=== PATIENT | female | born 1960 | race Caucasian/White ===

== ENCOUNTER 2020-05-23 10:30 | Inpatient (IN) | payer MEDICAID, MEDICARE ==
[2020-05-23] MEDS ORDERED: IBUPROFEN 200 MG TAB GT ONE (10:42)
[2020-05-23] MEDS ORDERED: IPRATROPIUM/ALBUTEROL 3 ML VIAL NEB ONE (10:47)
[2020-05-23] MEDS ORDERED: methylPREDNISolone SODIUM SUC 40 MG/ML VIAL IV ONE (10:48)
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
--- NOTE | 2020-05-23 11:42 | RAD ---
TECHNIQUE: Abdomen Series Abdominal series complete, including supine and upright AP views of the abdomen and frontal chest. HISTORY: MAIN fever, ams COMPARISONS: None currently available. FINDINGS: Scattered opacities are present within both lungs. No pneumothorax. No significant effusion. Mild cardiomegaly. Elevated right hemidiaphragm. Bowel gas appearance is nonspecific and non-distended. There is no pneumoperitoneum. There is no air fluid level. There is no obstructive pattern. [id number] stool. No suspicious calcifications overlying the renal shadows. Pelvic phleboliths. Degenerative changes are present in the spine and hips. Fracture deformity of the right pubic symphysis and inferior pubic ramus. Sacroiliac fusion with screw. IMPRESSION: * Nonspecific nonobstructive bowel gas pattern. * Suspect bilateral pneumonia. Differential diagnosis includes congestion and pneumonitis. Electronically signed by: Efrain Merchant 05/23/2020 11:41 AM [facility]
[2020-05-23] MEDS ORDERED: cefTRIAXone SODIUM 1 GM in SODIUM CHL 0.9% 50ML MIN-BAG+ 50 ML IVPB ONE (12:18)
[2020-05-23] MEDS ORDERED: AZITHROMYCIN IV 500 MG in SODIUM CHLORIDE 0.9% 250ML 250 ML IVPB ONE (12:19)
--- NOTE | 2020-05-23 13:58 | ED.PDOC ---
History of Present Illness - General Chief Complaint: Fever Stated Complaint: fever, Time Seen by Provider: 05/23/20 10:30 Source: EMS notes reviewed, EMS, senior living records Exam Limitations: clinical condition - History of Present Illness Initial Comments: The patient is a 60-year-old female presenting from the senior living by EMS secondary to altered mental state and fever above 103 this morning. The patient did get a coronavirus vaccine shot yesterday. The patient is obviously febrile she is obviously tachypneic. She is obviously tachycardic. The patient received a dose of IV Benadryl with EMS. Upon arrival the patient is largely obtunded. She does move all extremities. She can be woken up with yelling at her. She does seem significantly confused but very drowsy. No evidence of pain with moving her head or neck. No evidence of pain to palpation of the abdomen or chest. The patient has a cast to the right lower leg. The patient has a healed tracheostomy site. The patient has a G-tube in place. We are being told by be senior living that the patient can take oral intake. The patient was apparently put on clindamycin 3 days ago for some concern over the right lower leg surgery site. The patient does not seem to be having any pain in the area. The patient does desaturate down to around 86% on room air when allowed to rest. She does have some mild coarse breath sounds primarily to the left lower lobe. She does have coarse breathing likely related to the previous tracheostomy. Timing/Duration: unsure - Possibly as long as 7 or 8 hours Severity: severe Allergies/Adverse Reactions: Allergies Ertapenem Allergy (Verified 05/23/20 10:42) Penicillins Allergy (Verified 05/23/20 10:42) Review of Systems - Review of Systems Review of Systems: 05/23/20 13:58 Patient is unable to give a review of systems secondary to lethargy Past Medical History (General) - Patient Medical History Hx Seizures: Yes Hx Stroke: No Hx Cardiac Disorders: No Hx Congestive Heart Failure: No Hx Pacemaker: No Hx Diabetes: Yes Surgical History: other - Social History Hx Depression: Yes - bipolar Family Medical History - Family History Mother Family History: No Known Physical Exam - Physical Exam General Appearance: Frail, Lethargic, Ill Appearing Eye Exam: bilateral normal Ears, Nose, Throat: hearing grossly normal, other - Dry oropharynx. I do not see any evidence of any blistering or oral lesions aside from poor dentition. Neck: non-tender, supple Respiratory: rales, rhonchi, other - Mild tachypnea. Cardiovascular/Chest: no edema, tachycardia Peripheral Pulses: radial,right: 2+, radial,left: 2+ Gastrointestinal/Abdominal: non tender - G-tube is in place, soft Rectal Exam: deferred Extremity: non-tender, no pedal edema, no calf tenderness, normal capillary re fill, other - Cast was cut off to allow for examination of the right lower extremity. Several scabs are in place but no obvious evidence of tenderness to palpation or obvious infection. Limb was splinted back in place. Neurologic: disoriented x 3 - The patient is obviously significantly more lethargic than normal. I am however uncertain what her baseline mental function is is. Skin Exam: other - The patient does have a very fine nonpalpable petechial rash over her torso and extremities. I am uncertain how long this has been present Comments: Vital Signs - 24 hr 05/23/20 10:25 Temperature 98.9 F Pulse Rate [ 121 H right brachial] Respiratory 24 Rate Blood Pressure 151/84 [right brachial ] O2 Sat by Pulse 87 L Oximetry Progress - Progress Progress: 05/23/20 14:02 The patient is a 60-year-old female presenting with significantly altered mental state and markedly elevated fever. She has responded well to Motrin as far as the fever. The Benadryl which she received has worn off and the patient seems to be mentating more clearly at this time. She is still somewhat confused. I am uncertain what her mental baseline is. She does have at least a left lower lobe pneumonia. She has been placed on Rocephin and azithromycin. Cultures are being done. She did receive a dose of Benadryl with EMS and a dose of Solu-Medrol here upon arrival with me. It is uncertain how much the coronavirus vaccine that she was given yesterday has affected her presentation here today. Admitting for continued care. The right lower extremity cast was taken down and resplinted. I do not see any obvious evidence of infection on clinical evaluation of the site today. clyde gordillo [phone] - Results/Orders Results/Orders: EKG shows sinus tachycardia with PACs. Left bundle branch block. Difficult to interpret otherwise. Rate is 117 bpm. No previous for comparison. Chest x-ray shows bilateral lower lung field infiltrates, left more so than right. See report for details. Rapid flu and coronavirus are negative. Laboratory Results - last 24 hr 05/23/20 05/23/20 05/23/20 11:13 11:13 11:13 WBC 4.4 L RBC 4.23 Hgb 13.0 Hct 39.0 MCV 92.0 MCH 30.7 MCHC 33.3 RDW 15.3 H Plt Count 126 L MPV 7.6 Absolute Neuts (auto) 3.90 Absolute Lymphs (auto) 0.10 L Absolute Monos (auto) 0.40 Absolute Eos (auto) 0.00 Absolute Basos (auto) 0.00 Neutrophils % 87.0 H Lymphocytes % 2.6 L Monocytes % 10.0 H Eosinophils % 0.1 L Basophils % 0.3 ESR 9 PT INR PTT (SP) Sodium Potassium Chloride Carbon Dioxide Anion Gap BUN Creatinine BUN/Creatinine Ratio Random Glucose Serum Osmolality Lactic Acid Calcium Magnesium Total Bilirubin AST ALT Alkaline Phosphatase Creatine Kinase 114 CK-MB (CK-2) 1.2 CK-MB (CK-2) % Not Reportable Troponin I 0.03 C-Reactive Protein B-Natriuretic Peptide 41.8 Serum Total Protein Albumin Globulin Albumin/Globulin Ratio Amylase 23 L Lipase TSH Urine Color Urine Appearance Urine pH Ur Specific [place] Urine Protein Urine Glucose (UA) Urine Ketones Urine Blood Urine Nitrite Urine Bilirubin Urine Urobilinogen Ur Leukocyte Esterase Urine RBC Urine WBC Ur Epithelial Cells Urine Bacteria 05/23/20 05/23/20 05/23/20 11:13 11:13 11:13 WBC RBC Hgb Hct MCV MCH MCHC RDW Plt Count MPV Absolute Neuts (auto) Absolute Lymphs (auto) Absolute Monos (auto) Absolute Eos (auto) Absolute Basos (auto) Neutrophils % Lymphocytes % Monocytes % Eosinophils % Basophils % ESR PT 12.1 H INR 1.22 H PTT (SP) 28.3 Sodium 138 Potassium 3.9 Chloride 103 Carbon Dioxide 22 Anion Gap 16.9 BUN 14 Creatinine 0.60 BUN/Creatinine Ratio 23.3 H Random Glucose 133 H Serum Osmolality 278.1 Lactic Acid 2.0 Calcium 8.8 Magnesium 1.4 L Total Bilirubin 1.0 AST 32 ALT 16 Alkaline Phosphatase 66 Creatine Kinase CK-MB (CK-2) CK-MB (CK-2) % Troponin I C-Reactive Protein 2.4 H B-Natriuretic Peptide Serum Total Protein 6.8 Albumin 2.8 L Globulin 4.0 H Albumin/Globulin Ratio 0.7 L Amylase Lipase 26 TSH 3.13 Urine Color Urine Appearance Urine pH Ur Specific [place] Urine Protein Urine Glucose (UA) Urine Ketones Urine Blood Urine Nitrite Urine Bilirubin Urine Urobilinogen Ur Leukocyte Esterase Urine RBC Urine WBC Ur Epithelial Cells Urine Bacteria 05/23/20 12:15 WBC RBC Hgb Hct MCV MCH MCHC RDW Plt Count MPV Absolute Neuts (auto) Absolute Lymphs (auto) Absolute Monos (auto) Absolute Eos (auto) Absolute Basos (auto) Neutrophils % Lymphocytes % Monocytes % Eosinophils % Basophils % ESR PT INR PTT (SP) Sodium Potassium Chloride Carbon Dioxide Anion Gap BUN Creatinine BUN/Creatinine Ratio Random Glucose Serum Osmolality Lactic Acid Calcium Magnesium Total Bilirubin AST ALT Alkaline Phosphatase Creatine Kinase CK-MB (CK-2) CK-MB (CK-2) % Troponin I C-Reactive Protein B-Natriuretic Peptide Serum Total Protein Albumin Globulin Albumin/Globulin Ratio Amylase Lipase TSH Urine Color Yellow Urine Appearance Clear Urine pH 7.5 Ur Specific [place] 1.020 Urine Protein Trace Urine Glucose (UA) Negative Urine Ketones 15 H Urine Blood Negative Urine Nitrite Negative Urine Bilirubin Small H Urine Urobilinogen 1.0 Ur Leukocyte Esterase Negative Urine RBC 0 Urine WBC 0 Ur Epithelial Cells 0 Urine Bacteria 0 Departure - Departure Clinical Impression: correction-acquired pneumonia, Delirium Disposition: Admit Patient Departure Forms: ED Discharge - Pt. Copy, Patient Portal Self Enrollment Referrals: BLAIR BENOIT [Primary Care Provider] - 1-2 Weeks Decision To Admit - Decistion To Admit Decision to Admit Reason: Medical Nature Decision to Admit Date: 05/23/20 Decision to Admit Time: 14:04
[2020-05-23] MEDS ORDERED: CHLORHEXIDINE MOUTH RINSE 473 ML BTTL SWSP ONE (14:16)
[2020-05-23] MEDS ORDERED: VALPROIC ACID 250MG/5ML 60 ML BTTL PO ONE (14:16)
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
[2020-05-23] MEDS ORDERED: ALBUTEROL SULFATE 2.5 MG/3 ML VIAL NEB PRN (16:51)
[2020-05-23] MEDS ORDERED: SODIUM CHLORIDE 0.9% (FLUSH) 10 ML SYG IV PRN (16:51)
[2020-05-23] MEDS ORDERED: ONDANSETRON INJ 4 MG/2 ML VIAL IV PRN (16:51)
[2020-05-23] MEDS ORDERED: ACETAMINOPHEN 325 MG TAB PO PRN (16:55)
[2020-05-23] MEDS ORDERED: BACLOFEN 10 MG TAB PO PRN (16:55)
[2020-05-23] MEDS ORDERED: CYCLOBENZAPRINE HCL 5 MG TAB PO PRN (16:55)
[2020-05-23] MEDS ORDERED: VANCOMYCIN PER PHARMACY INJ SCH (17:00)
[2020-05-23] MEDS ORDERED: hydrOXYzine HCl 25 MG TAB ONE (17:18)
[2020-05-23] MEDS: CHLORHEXIDINE MOUTH RINSE 473 ML BTTL MT SCH ×2 (17:27→20:48)
[2020-05-23] MEDS: IV SET AND CAP CHANGE INJ INJ SCH (17:29)
[2020-05-23] MEDS ORDERED: hydrOXYzine PAMOATE 25 MG CAP ONE ×2 (17:39→18:55)
[2020-05-23] MEDS: HYDROXYZINE PAMOATE 50 MG PO SCH ×2 (18:05→20:49)
[2020-05-23] MEDS: VANCOMYCIN HCL INJ 1,000 MG, VANCOMYCIN HCL INJ 500 MG in SODIUM CHLORIDE 0.9% 250ML 25... IVPB SCH (18:06)
[2020-05-23] MEDS ORDERED: MELATONIN 3 MG TAB ONE (18:55)
[2020-05-23] MEDS ORDERED: risperiDONE 1 MG TAB ONE (18:55)
[2020-05-23] MEDS ORDERED: LACTOBACILLUS 1 TAB ONE (18:56)
[2020-05-23] MEDS: IPRATROPIUM/ALBUTEROL 3 ML VIAL INH SCH (20:05)
[2020-05-23] MEDS: MELATONIN 3 MG TAB PO SCH (20:48)
[2020-05-23] MEDS: BENZTROPINE MESYLATE TAB 1 MG TAB PO SCH (20:50)
[2020-05-23] MEDS: VALPROIC ACID 250MG/5ML 60 ML BTTL PO SCH (20:51)
[2020-05-23] MEDS: NON-FORMULARY MEDICATION 1 EA MIS (Lactobacillus [Acidophilus Lactobacilli] 1 CAP) PO SCH (20:52)
[2020-05-23] MEDS: ENOXAPARIN SODIUM 40 MG/0.4 ML SYG SUBCU SCH (20:52)
[2020-05-23] MEDS: RISPERIDONE PO SCH (20:58)
[2020-05-23] MEDS ORDERED: NON-FORMULARY MEDICATION 1 EA MIS (Melatonin [Melatonin] 5 MG) PO SCH (21:00)
[2020-05-23] MEDS: SODIUM CHLORIDE 0.9% (FLUSH) 10 ML SYG IV SCH (21:33)
[2020-05-24] MEDS ORDERED: hydrOXYzine PAMOATE 25 MG CAP ONE ×7 (00:48→23:36)
[2020-05-24] MEDS: HYDROXYZINE PAMOATE 50 MG PO SCH ×6 (01:05→20:01)
[2020-05-24] MEDS: VANCOMYCIN HCL INJ 1,000 MG, VANCOMYCIN HCL INJ 500 MG in SODIUM CHLORIDE 0.9% 250ML 25... IVPB SCH ×2 (05:37→17:04)
[2020-05-24] MEDS: PANTOPRAZOLE SODIUM IV 40 MG VIAL IV SCH (06:11)
[2020-05-24] MEDS ORDERED: cefTRIAXone SODIUM 1 GM VIAL ONE (07:23)
[2020-05-24] MEDS ORDERED: SODIUM CHL 0.9% 50ML MIN-BAG+ 50 ML IVPB ONE (07:24)
[2020-05-24] MEDS ORDERED: LACTOBACILLUS 1 TAB ONE ×2 (07:25→14:50)
--- NOTE | 2020-05-24 08:33 | RAD ---
PROCEDURE:XR CHEST 1 VIEW HISTORY:Pneumonia COMPARISON: None FINDINGS: The heart appears unremarkable. There are coarse interstitial markings seen in both left and right lung with developing patchy hazy peripheral infiltrate seen within the mid left lung and right upper lobe. There is no effusion or pneumothorax. There are no acute bony or soft tissue abnormalities. IMPRESSION: Findings concerning for atypical pneumonia. Electronically signed by: Vu Mclean MD 05/24/2020 8:[address] [facility]
[2020-05-24] MEDS: ARIPiprazole 5 MG TAB PO SCH (09:01)
[2020-05-24] MEDS: cefTRIAXone SODIUM 1 GM in SODIUM CHL 0.9% 50ML MIN-BAG+ 50 ML IVPB SCH (09:01)
[2020-05-24] MEDS: ASPIRIN (CHEWABLE) 81 MG TAB PO SCH (09:02)
[2020-05-24] MEDS: BENZTROPINE MESYLATE TAB 1 MG TAB PO SCH ×2 (09:02→20:03)
[2020-05-24] MEDS: DOCUSATE SODIUM 100 MG CAP PO SCH (09:02)
[2020-05-24] MEDS: VALPROIC ACID 250MG/5ML 60 ML BTTL PO SCH ×3 (09:03→20:04)
[2020-05-24] MEDS: CHLORHEXIDINE MOUTH RINSE 473 ML BTTL MT SCH ×4 (09:03→20:03)
[2020-05-24] MEDS: NON-FORMULARY MEDICATION 1 EA MIS (Lactobacillus [Acidophilus Lactobacilli] 1 CAP) PO SCH ×3 (09:03→20:05)
[2020-05-24] MEDS: SODIUM CHLORIDE 0.9% (FLUSH) 10 ML SYG IV SCH ×2 (09:04→20:05)
[2020-05-24] MEDS: IPRATROPIUM/ALBUTEROL 3 ML VIAL INH SCH ×4 (09:30→20:10)
[2020-05-24] MEDS ORDERED: AZITHROMYCIN IV 500 MG VIAL IVPB ONE (10:17)
[2020-05-24] MEDS ORDERED: SODIUM CHLORIDE 0.9% 250ML 250 ML ONE (10:17)
[2020-05-24] MEDS: AZITHROMYCIN IV 500 MG in SODIUM CHLORIDE 0.9% 250ML 250 ML IVPB SCH (10:23)
[2020-05-24] MEDS: INSULIN LISPRO 100 UNITS/ML PEN SUBCU SCH ×2 (11:53→16:29)
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
[2020-05-24] MEDS ORDERED: IPRATROPIUM/ALBUTEROL 3 ML VIAL NEB ONE ×2 (17:36→20:04)
[2020-05-24] MEDS ORDERED: risperiDONE 1 MG TAB ONE (19:25)
[2020-05-24] MEDS ORDERED: BIFIDOBACTERIUM INFANTIS 4 MG CAP ONE (19:25)
[2020-05-24] MEDS ORDERED: ENOXAPARIN SODIUM 40 MG/0.4 ML SYG SUBCU ONE (19:25)
[2020-05-24] MEDS ORDERED: BENZTROPINE MESYLATE TAB 1 MG TAB ONE (19:25)
[2020-05-24] MEDS ORDERED: MELATONIN 3 MG TAB ONE (19:25)
[2020-05-24] MEDS: MELATONIN 3 MG TAB PO SCH (20:02)
[2020-05-24] MEDS: ENOXAPARIN SODIUM 40 MG/0.4 ML SYG SUBCU SCH (20:02)
[2020-05-24] MEDS: RISPERIDONE PO SCH (20:03)
[2020-05-25] MEDS: HYDROXYZINE PAMOATE 50 MG PO SCH ×3 (00:37→08:19)
[2020-05-25] MEDS ORDERED: hydrOXYzine PAMOATE 25 MG CAP ONE ×2 (02:42→08:14)
[2020-05-25] MEDS ORDERED: PANTOPRAZOLE SODIUM IV 40 MG VIAL ONE (02:43)
[2020-05-25] MEDS: PANTOPRAZOLE SODIUM IV 40 MG VIAL IV SCH (06:06)
[2020-05-25] MEDS: VANCOMYCIN HCL INJ 1,000 MG, VANCOMYCIN HCL INJ 500 MG in SODIUM CHLORIDE 0.9% 250ML 25... IVPB SCH ×2 (06:06→17:48)
[2020-05-25] MEDS ORDERED: ASPIRIN (CHEWABLE) 81 MG TAB ONE (07:41)
[2020-05-25] MEDS ORDERED: DOCUSATE SODIUM 100 MG CAP ONE (07:41)
[2020-05-25] MEDS ORDERED: BENZTROPINE MESYLATE TAB 1 MG TAB ONE (07:41)
[2020-05-25] MEDS ORDERED: AZITHROMYCIN IV 500 MG VIAL IVPB ONE (07:41)
[2020-05-25] MEDS ORDERED: ARIPiprazole 5 MG TAB ONE (07:41)
[2020-05-25] MEDS ORDERED: SODIUM CHL 0.9% 50ML MIN-BAG+ 50 ML IVPB ONE (07:42)
[2020-05-25] MEDS ORDERED: cefTRIAXone SODIUM 1 GM VIAL ONE (07:42)
[2020-05-25] MEDS ORDERED: SODIUM CHLORIDE 0.9% 250ML 250 ML ONE (07:42)
[2020-05-25] MEDS ORDERED: MAGNESIUM SULFATE PREMIX 2GM 2 GM in PREMIX BAG 1 BAG IVPB ONE (07:55)
[2020-05-25] MEDS: INSULIN LISPRO 100 UNITS/ML PEN SUBCU SCH ×4 (07:55→20:57)
[2020-05-25] MEDS: ARIPiprazole 5 MG TAB PO SCH (07:57)
[2020-05-25] MEDS: DOCUSATE SODIUM 100 MG CAP PO SCH (07:57)
[2020-05-25] MEDS: BENZTROPINE MESYLATE TAB 1 MG TAB PO SCH ×2 (07:59→20:05)
[2020-05-25] MEDS: ASPIRIN (CHEWABLE) 81 MG TAB PO SCH (07:59)
[2020-05-25] MEDS: VALPROIC ACID 250MG/5ML 60 ML BTTL PO SCH ×3 (08:00→20:07)
[2020-05-25] MEDS: CHLORHEXIDINE MOUTH RINSE 473 ML BTTL MT SCH ×4 (08:01→20:07)
[2020-05-25] MEDS ORDERED: MAGNESIUM SULFATE PREMIX 2GM 50 ML IVPB ONE (08:14)
[2020-05-25] MEDS ORDERED: LACTOBACILLUS 1 TAB ONE (08:14)
[2020-05-25] MEDS: MAGNESIUM OXIDE 400 MG TAB PO SCH (08:18)
[2020-05-25] MEDS: NON-FORMULARY MEDICATION 1 EA MIS (Lactobacillus [Acidophilus Lactobacilli] 1 CAP) PO SCH (08:20)
[2020-05-25] MEDS: cefTRIAXone SODIUM 1 GM in SODIUM CHL 0.9% 50ML MIN-BAG+ 50 ML IVPB SCH (08:27)
[2020-05-25] MEDS: AZITHROMYCIN IV 500 MG in SODIUM CHLORIDE 0.9% 250ML 250 ML IVPB SCH (08:27)
[2020-05-25] MEDS: SODIUM CHLORIDE 0.9% (FLUSH) 10 ML SYG IV SCH ×2 (08:27→20:08)
[2020-05-25] MEDS ORDERED: IPRATROPIUM/ALBUTEROL 3 ML VIAL NEB ONE ×2 (08:30→14:34)
[2020-05-25] MEDS: IPRATROPIUM/ALBUTEROL 3 ML VIAL INH SCH ×4 (08:45→20:47)
[2020-05-25] MEDS ORDERED: VANCOMYCIN PER PHARMACY IVPB SCH (09:00)
[2020-05-25] MEDS ORDERED: VALPROIC ACID 250MG/5ML 60 ML BTTL PO ONE (09:00)
--- NOTE | 2020-05-25 13:36 | PN ---
SUPERVISING PHYSICIAN: Yadira Tinoco MD DATE: 05/25/20 SUBJECTIVE: The patient seems to be doing okay. Nursing staff came from [facility] to check on her and said she seems to be at her baseline mental status. She has not had any further complaints. She is doing okay with her diet. OBJECTIVE: VITAL SIGNS: Temperature 98, pulse 81, blood pressure 136/68, respirations 18, saturating 95% on 2 liter nasal cannula at rest. GENERAL: The patient is resting comfortably. No acute distress. CHEST: Lung sounds are fairly clear. She does have some upper respiratory raling which I think is from her previous trach. No obvious rales, rhonchi or wheezing. HEART: Regular rate and rhythm. ABDOMEN: Soft, nontender. G-tube remains in place without any complications. Bowel sounds remain active. EXTREMITIES: Cast on right ankle removed and shows a small area on the medial aspect of her medial malleolus with a scab on it, healing with no complications. No other signs of infections or skin breakdown. Pulses distally are strong. Capillary refills brisk. NEUROLOGIC: Alert and oriented x3. LABORATORY: White count 3,300, hemoglobin 11.4, hematocrit 33.8, platelet count 107,000. Differential without a left shift today. Chemistries show normal electrolytes. Creatinine is 0.51, BUN 12. Blood sugars range between 76 and 98. Calcium 8.2, magnesium 1.5. MICROBIOLOGY: Blood cultures are negative at 48 hours. RADIOLOGY: No additional radiographic studies today. ASSESSMENT: 1. Sepsis secondary to bilateral pneumonia, healthcare acquired. 2. Electrolyte imbalance to include moderate hypomagnesemia, requiring both oral and parenteral replacement. 3. Possible allergic reaction to COVID vaccine. 4. Seizure disorder, unknown etiology. 5. Bipolar disorder. PLAN: Will continue with current treatment plan on antibiotic coverage with Rocephin, azithromycin and vancomycin. I anticipate that we will discharge tomorrow. Hopefully, we can transition her to probably doxycycline and a third generation oral cephalosporin at discharge. Her labs are fairly stable except for magnesium being low. We will recheck that in the morning. H&H is stable. In regards to her magnesium, I will give her IV replacement as well as start her on some p.o. replacement today. I will also plan to check an x-ray in the morning. She is getting a boot put on that right ankle. We will followup once she is discharged. Hopefully, we will be able to discharge tomorrow back to [facility]. Until that time, we will continue to monitor and treat as needed. #[id number] [facility]
[2020-05-25] MEDS: hydrOXYzine PAMOATE 25 MG CAP PO SCH ×3 (15:57→20:06)
[2020-05-25] MEDS: LACTOBACILLUS 1 TAB PO SCH ×2 (16:15→20:05)
[2020-05-25] MEDS ORDERED: risperiDONE 1 MG TAB ONE (19:01)
[2020-05-25] MEDS: ENOXAPARIN SODIUM 40 MG/0.4 ML SYG SUBCU SCH (20:04)
[2020-05-25] MEDS: MELATONIN 3 MG TAB PO SCH (20:05)
[2020-05-25] MEDS: risperiDONE 1 MG TAB PO SCH (20:06)
[2020-05-26] MEDS: hydrOXYzine PAMOATE 25 MG CAP PO SCH ×6 (01:28→20:03)
[2020-05-26] MEDS: PANTOPRAZOLE SODIUM IV 40 MG VIAL IV SCH (05:45)
[2020-05-26] MEDS: VANCOMYCIN HCL INJ 1,000 MG, VANCOMYCIN HCL INJ 500 MG in SODIUM CHLORIDE 0.9% 250ML 25... IVPB SCH ×2 (05:45→17:26)
[2020-05-26] MEDS ORDERED: hydrOXYzine PAMOATE 25 MG CAP ONE (06:55)
[2020-05-26] MEDS: INSULIN LISPRO 100 UNITS/ML PEN SUBCU SCH ×4 (07:10→21:02)
--- NOTE | 2020-05-26 07:30 | RAD ---
PROCEDURE: XR Chest, 1 View CLINICAL INDICATION: The patient is 60 years old and is Female; PNA TECHNIQUE: Frontal view of the chest. COMPARISON: XR CHEST from 05/24/20 FINDINGS: LUNGS: Interval improvement in mild pulmonary congestion. NO focal infiltrates. PLEURAL SPACE: There is no pneumothorax. There are no pleural effusions noted. HEART: The heart size is enlarged. MEDIASTINUM: The mediastinal contour is normal. BONES/JOINTS: No acute abnormality noted. VASCULATURE: Pulmonary vascularity is not engorged. TUBES, LINES AND DEVICES: There are electrocardiogram leads present. IMPRESSION: Interval improvement in mild pulmonary congestion. NO focal infiltrates. Electronically signed by: Brandan Berry MD 05/26/2020 7:28 AM [facility]
[2020-05-26] MEDS: ASPIRIN (CHEWABLE) 81 MG TAB PO SCH (08:00)
[2020-05-26] MEDS: BENZTROPINE MESYLATE TAB 1 MG TAB PO SCH ×2 (08:00→20:03)
[2020-05-26] MEDS: DOCUSATE SODIUM 100 MG CAP PO SCH (08:01)
[2020-05-26] MEDS: MAGNESIUM OXIDE 400 MG TAB PO SCH (08:01)
[2020-05-26] MEDS: VALPROIC ACID 250MG/5ML 60 ML BTTL PO SCH ×3 (08:01→20:02)
[2020-05-26] MEDS: ARIPiprazole 5 MG TAB PO SCH (08:01)
[2020-05-26] MEDS: cefTRIAXone SODIUM 1 GM in SODIUM CHL 0.9% 50ML MIN-BAG+ 50 ML IVPB SCH (08:02)
[2020-05-26] MEDS: LACTOBACILLUS 1 TAB PO SCH ×3 (08:07→20:04)
[2020-05-26] MEDS: SODIUM CHLORIDE 0.9% (FLUSH) 10 ML SYG IV SCH ×2 (08:07→20:04)
[2020-05-26] MEDS: CHLORHEXIDINE MOUTH RINSE 473 ML BTTL MT SCH ×4 (08:07→20:02)
[2020-05-26] MEDS: IPRATROPIUM/ALBUTEROL 3 ML VIAL INH SCH ×4 (08:29→20:31)
[2020-05-26] MEDS: AZITHROMYCIN IV 500 MG in SODIUM CHLORIDE 0.9% 250ML 250 ML IVPB SCH (10:31)
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
[2020-05-26] MEDS: IV SET AND CAP CHANGE INJ INJ SCH (18:09)
[2020-05-26] MEDS: MELATONIN 3 MG TAB PO SCH (20:03)
[2020-05-26] MEDS: risperiDONE 1 MG TAB PO SCH (20:03)
[2020-05-26] MEDS: ENOXAPARIN SODIUM 40 MG/0.4 ML SYG SUBCU SCH (20:04)
[2020-05-27] MEDS: hydrOXYzine PAMOATE 25 MG CAP PO SCH ×3 (01:22→09:17)
[2020-05-27] MEDS ORDERED: PANTOPRAZOLE SODIUM TAB 40 MG PO ONE (03:50)
[2020-05-27] MEDS: VANCOMYCIN HCL INJ 1,000 MG, VANCOMYCIN HCL INJ 500 MG in SODIUM CHLORIDE 0.9% 250ML 25... IVPB SCH (06:00)
[2020-05-27 06:05] VITALS: O2SAT 94
[2020-05-27] MEDS ORDERED: PANTOPRAZOLE SODIUM TAB 40 MG PO SCH (06:30)
[2020-05-27] MEDS: INSULIN LISPRO 100 UNITS/ML PEN SUBCU SCH ×2 (07:43→11:49)
[2020-05-27] MEDS: IPRATROPIUM/ALBUTEROL 3 ML VIAL INH SCH ×2 (08:30→12:50)
[2020-05-27] MEDS: DOCUSATE SODIUM 100 MG CAP PO SCH (09:17)
[2020-05-27] MEDS: ARIPiprazole 5 MG TAB PO SCH (09:17)
[2020-05-27] MEDS: BENZTROPINE MESYLATE TAB 1 MG TAB PO SCH (09:17)
[2020-05-27] MEDS: ASPIRIN (CHEWABLE) 81 MG TAB PO SCH (09:17)
[2020-05-27] MEDS: MAGNESIUM OXIDE 400 MG TAB PO SCH (09:17)
[2020-05-27] MEDS: cefTRIAXone SODIUM 1 GM in SODIUM CHL 0.9% 50ML MIN-BAG+ 50 ML IVPB SCH (09:17)
[2020-05-27] MEDS: LACTOBACILLUS 1 TAB PO SCH (09:18)
[2020-05-27] MEDS: CHLORHEXIDINE MOUTH RINSE 473 ML BTTL MT SCH (09:18)
[2020-05-27] MEDS: VALPROIC ACID 250MG/5ML 60 ML BTTL PO SCH (09:18)
[2020-05-27] MEDS: AZITHROMYCIN IV 500 MG in SODIUM CHLORIDE 0.9% 250ML 250 ML IVPB SCH (10:20)
[2020-05-27] MEDS: SODIUM CHLORIDE 0.9% (FLUSH) 10 ML SYG IV SCH (11:18)
[2020-05-27 15:06] VITALS: BP 161/81; TEMP 97.3
== END 2020-05-27 13:35 | disposition home or self-care (01) | DRG 871 ==
LOC: ER 10:30 → OBSVTOIN 14:15 → MS 14:15
PROVIDERS: ADMIT Nurse Practitioner Acute Care; ATTEND Nurse Practitioner Family
DX: A41.9 Sepsis, unspecified organism (principal); J18.9 Pneumonia, unspecified organism; T88.1XXA Other complications following immunization, not elsewhere classified, initial encounter; Y95 Nosocomial condition; E83.42 Hypomagnesemia; G40.909 Epilepsy, unspecified, not intractable, without status epilepticus; F31.9 Bipolar disorder, unspecified; Z88.0 Allergy status to penicillin; Z88.8 Allergy status to other drugs, medicaments and biological substances; S82.891D Other fracture of right lower leg, subsequent encounter for closed fracture with routine healing

== ENCOUNTER 2020-06-17 17:12 | Emergency (ER) | payer MEDICARE, OTHER ==
--- NOTE | 2020-06-17 17:35 | ED.PDOC ---
History of Present Illness - General Chief Complaint: Neuro Symptoms/Deficits Stated Complaint: increased hallucinations,AMS Time Seen by Provider: 06/17/20 17:14 Source: patient, RN notes reviewed, Vital Signs reviewed, EMS notes reviewed, EMS, prison records, old records Exam Limitations: no limitations - History of Present Illness Initial Comments: 60 yo F with hx of bipolar pyschosis [facility] prison with worsening AMS. State she is noncompliant with medication. Was found eating her feces, so sent her in for evaluation. Was diagnosed with pneumonia one month ago. currently no fever. Allergies/Adverse Reactions: Allergies Ertapenem Allergy (Verified 05/23/20 16:42) Penicillins Allergy (Verified 05/23/20 16:42) Home Medications: Ambulatory Orders ARIPiprazole [Abilify] 5 mg PO DAILY 05/23/20 Acetaminophen [8-Hour Pain Reliever] 650 mg PO Q4H PRN 05/23/20 Aspirin [Aspirin 81 Low Dose] 81 mg PO DAILY 05/23/20 Baclofen 10 mg PO Q8H PRN 05/23/20 Benztropine Mesylate 1 mg PO BID 05/23/20 Chlorhexidine Gluconate (Mouth [Chlorhexidine Gluconate] 15 ml MT QID 05/23/20 Cholecalciferol [Vitamin D3] 1,000 unit PO DAILY 05/23/20 Cyclobenzaprine HCl [Flexeril] 5 mg PO Q8H PRN 05/23/20 Dextromethorphan-Guaifenesin [Mucinex Dm 30-600 mg] 1 tab PO Q12H PRN 05/23/20 Docusate Sodium 100 mg PO DAILY 05/23/20 HYDROcodone 7.5MG/APAP 325MG [Condon 7.5/325] 1 tab PO Q6H PRN 05/23/20 Hydroxyzine Pamoate 50 mg PO Q4H 05/23/20 Ipratropium-Albuterol [Ipratropium Warba/Albut 0.5-2.5 (3) mg/3Ml] 1 halie INH Q4H PRN 05/23/20 Lactobacillus [Acidophilus Lactobacilli] 1 cap PO TID 05/23/20 Loperamide Cap [Imodium Cap] 2 mg PO Q12H PRN 05/23/20 Magnesium Oxide [Mag-Ox Tab] 400 - 800 mg PO DAILY 05/23/20 Melatonin 5 mg PO BEDTIME 05/23/20 Miconazole Nitrate 2 % Topical [Monistat-Derm Topical] 1 applic TOP BID 05/23/20 Ondansetron [Ondansetron Odt] 4 mg PO Q8H PRN 05/23/20 Potassium Phosphate Monobasic [K-Phos] 500 mg PO DAILY PRN 05/23/20 Risperidone 9 mg PO BEDTIME 05/23/20 Tetrahydrozoline HCl (Ophth) [Eye Drops] 0.05 % OP Q6H PRN 05/23/20 Valproic Acid Syrup [Depakene Syrup] 10 ml PO TID 05/23/20 Doxycycline Hyclate [Vibramycin] 100 mg PO Q12H #14 cap 05/26/20 Levofloxacin [Levaquin] 750 mg PO DAILY #5 tab 05/26/20 Review of Systems - Review of Systems Constitutional: Denies: chills, fever EENTM: Denies: blurred vision, throat pain Respiratory: Denies: cough, short of breath Cardiology: Denies: chest pain Gastrointestinal/Abdominal: Denies: abdominal pain, nausea, vomiting Genitourinary: Denies: dysuria Musculoskeletal: Denies: back pain, muscle pain Skin: Denies: rash Neurological: States: other - denies hallucinations, denies SI/HI. Denies: headache, numbness Hematologic/Lymphatic: Denies: easy bruising Unable to Obtain Due To: other - limited due to ams. Past Medical History (General) - Patient Medical History Hx Seizures: Yes Hx Stroke: No Hx Asthma: No Hx of COPD: No Hx Cardiac Disorders: No Hx Congestive Heart Failure: No Hx Pacemaker: No Hx Hypertension: No Hx Diabetes: Yes Hx Gastroesophageal Reflux: No Hx Renal Disease: No Hx Cancer: No Hx MRSA: No - Vaccination History Hx Influenza Vaccination: - unknown Hx Pneumococcal Vaccination: - unknown - Social History Hx Tobacco Use: Yes Hx Alcohol Use: No Hx Substance Use: No Hx Depression: Yes - bipolar Hx Physical Abuse: No Hx Emotional Abuse: No - Activities of Daily Living [facility] Family Medical History - Family History Mother Family History: No Known Physical Exam - Physical Exam General Appearance: Alert, Comfortable, No apparent distress, Unkempt, Well Developed, Well Hydrated, Well Nourished Eye Exam: bilateral normal Ears, Nose, Throat: hearing grossly normal, normal ENT inspection Neck: non-tender, full range of motion, supple, normal inspection Respiratory: chest non-tender, lungs clear, normal breath sounds, no respiratory distress, no accessory muscle use Cardiovascular/Chest: normal peripheral pulses, regular rate, rhythm, no edema, no gallop, no JVD, no murmur Peripheral Pulses: radial,right: 2+, radial,left: 2+ Gastrointestinal/Abdominal: normal bowel sounds, non tender, soft, no organomegaly Rectal Exam: deferred Back Exam: normal inspection, no CVA tenderness, no vertebral tenderness Extremity: normal range of motion, non-tender, normal inspection, no pedal edema, no calf tenderness, normal capillary refill Neurologic: no motor/sensory deficits, alert, normal mood/affect, oriented x 3 Skin Exam: normal color, warm/dry Progress - Progress Progress: 06/17/20 19:10 partial ddx: UTI, pneumonia, covid, medication noncompliance, cad. patient states she missed dinner, requesting food. No acute abnormalities to explain underlying worsening bipolar with psychosis. The data reviewed when caring for this patient included: nurse notes, prior records, etc. The history and assessments from nurses notes were reviewed and considered, and the patient's home medication list was also reviewed and considered. My assessment and the results of testing completed here in the ED were discussed with the patient. All questions were answered. They have been instructed to return if their symptoms worsen, and have been asked to follow up with their primary care physician to recheck today's presenting complaint. Eva Baum DO #[id number] - Results/Orders Results/Orders: 06/17/20 18:15 EKG STAT Laboratory Results WBC 3.1 K/mm3 (4.8-10.8) L 06/17/20 17:51 RBC 4.19 M/mm3 (4.20-5.40) L 06/17/20 17:51 Hgb 12.9 gm/dL (12.0-16.0) 06/17/20 17:51 Hct 38.2 % (36.0-47.0) 06/17/20 17:51 MCV 91.2 fl (81.0-99.0) 06/17/20 17:51 MCH 30.9 pg (27.0-31.0) 06/17/20 17:51 MCHC 33.8 g/dL (33.0-37.0) 06/17/20 17:51 RDW 14.0 % (11.5-14.5) 06/17/20 17:51 Plt Count 94 K/mm3 (130-400) L 06/17/20 17:51 MPV 7.7 fl (7.40-10.4) 06/17/20 17:51 Absolute Neuts (auto) 1.10 K/uL (1.8-6.8) L 06/17/20 17:51 Absolute Lymphs (auto) 1.40 K/uL (1.0-3.4) 06/17/20 17:51 Absolute Monos (auto) 0.50 K/uL (0.2-0.8) 06/17/20 17:51 Absolute Eos (auto) 0.00 K/uL (0.0-0.4) 06/17/20 17:51 Absolute Basos (auto) 0.00 K/uL (0.0-0.1) 06/17/20 17:51 Neutrophils % 36.1 % (42.0-78.0) L 06/17/20 17:51 Lymphocytes % 46.3 % (20.0-50.0) 06/17/20 17:51 Monocytes % 15.7 % (2.0-9.0) H 06/17/20 17:51 Eosinophils % 1.3 % (1.0-5.0) 06/17/20 17:51 Basophils % 0.6 % (0.0-2.0) 06/17/20 17:51 Sodium 141 mmol/L (135-145) 06/17/20 17:51 Potassium 3.5 mmol/L (3.6-5.0) L 06/17/20 17:51 Chloride 105 mmol/L (101-111) 06/17/20 17:51 Carbon Dioxide 28 mmol/L (21-31) 06/17/20 17:51 Anion Gap 11.5 (12-18) L 06/17/20 17:51 BUN 15 mg/dL (7-18) 06/17/20 17:51 Creatinine 0.58 mg/dL (0.6-1.3) L 06/17/20 17:51 BUN/Creatinine Ratio 25.9 (10-20) H 06/17/20 17:51 Random Glucose 77 mg/dL (70-105) 06/17/20 17:51 Serum Osmolality 280.9 mOsm/L (275-295) 06/17/20 17:51 Calcium 8.9 mg/dL (8.4-10.2) 06/17/20 17:51 Total Bilirubin 1.1 mg/dL (0.2-1.0) H 06/17/20 17:51 AST 44 IU/L (10-42) H 06/17/20 17:51 ALT 24 IU/L (10-60) 06/17/20 17:51 Alkaline Phosphatase 65 IU/L (42-121) 06/17/20 17:51 Troponin I 0.03 ng/mL (0.01-0.05) 06/17/20 17:45 Serum Total Protein 6.4 gm/dL (6.4-8.2) 06/17/20 17:51 Albumin 2.9 g/dl (3.2-5.5) L 06/17/20 17:51 Globulin 3.5 gm/dL (2.3-3.5) 06/17/20 17:51 Albumin/Globulin Ratio 0.8 (1.1-1.9) L 06/17/20 17:51 Urine Color Zahira (Yellow) H 06/17/20 18:42 Urine Appearance Cloudy (Clear) 06/17/20 18:42 Urine pH 6.5 (4.5-7.8) 06/17/20 18:42 Ur Specific [place] 1.025 (1.005-1.030) 06/17/20 18:42 Urine Protein Trace mg/dL 06/17/20 18:42 Urine Glucose (UA) Negative mg/dL (Negative) 06/17/20 18:42 Urine Ketones Trace mg/dL (NEGATIVE) 06/17/20 18:42 Urine Blood Negative (Negative) 06/17/20 18:42 Urine Nitrite Negative 06/17/20 18:42 Urine Bilirubin Small (NEGATIVE) H 06/17/20 18:42 Urine Urobilinogen 1.0 mg/dL (0.2-1.0) 06/17/20 18:42 Ur Leukocyte Esterase Negative (Negative) 06/17/20 18:42 Urine RBC 0-1 /hpf 06/17/20 18:42 Urine WBC 5-10 /hpf H 06/17/20 18:42 Ur Epithelial Cells 5-10 /hpf 06/17/20 18:42 Calcium Oxalate Crystal 1+ /hpf 06/17/20 18:42 Urine Bacteria Rare 06/17/20 18:42 Urine Mucus Moderate 06/17/20 18:42 - EKG/XRAY/CT EKG: Sinus, LBBB, Changed from - no longer tachycardic XRAY: chest - no acute cardiopulomary pathology CT: no ICH. Departure - Departure Clinical Impression: Psychotic episode Bipolar disorder Qualifiers: Active/Remission status: currently active Current bipolar episode type: mixed Current episode severity: unspecified Qualified Code(s): F31.60 - Bipolar disorder, current episode mixed, unspecified Time of Disposition: 19:11 Disposition: Discharge to SNF Departure Forms: ED Discharge - Pt. Copy, Patient Portal Self Enrollment Instructions: Bipolar Disorder (DC) Diet: resume usual diet Activity: increase activity as tolerated Referrals: BLAIR BENOIT [Primary Care Provider] - 1-5 Days Home Medications: Ambulatory Orders ARIPiprazole [Abilify] 5 mg PO DAILY 05/23/20 Acetaminophen [8-Hour Pain Reliever] 650 mg PO Q4H PRN 05/23/20 Aspirin [Aspirin 81 Low Dose] 81 mg PO DAILY 05/23/20 Baclofen 10 mg PO Q8H PRN 05/23/20 Benztropine Mesylate 1 mg PO BID 05/23/20 Chlorhexidine Gluconate (Mouth [Chlorhexidine Gluconate] 15 ml MT QID 05/23/20 Cholecalciferol [Vitamin D3] 1,000 unit PO DAILY 05/23/20 Cyclobenzaprine HCl [Flexeril] 5 mg PO Q8H PRN 05/23/20 Dextromethorphan-Guaifenesin [Mucinex Dm 30-600 mg] 1 tab PO Q12H PRN 05/23/20 Docusate Sodium 100 mg PO DAILY 05/23/20 HYDROcodone 7.5MG/APAP 325MG [Condon 7.5/325] 1 tab PO Q6H PRN 05/23/20 Hydroxyzine Pamoate 50 mg PO Q4H 05/23/20 Ipratropium-Albuterol [Ipratropium Warba/Albut 0.5-2.5 (3) mg/3Ml] 1 halie INH Q4H PRN 05/23/20 Lactobacillus [Acidophilus Lactobacilli] 1 cap PO TID 05/23/20 Loperamide Cap [Imodium Cap] 2 mg PO Q12H PRN 05/23/20 Magnesium Oxide [Mag-Ox Tab] 400 - 800 mg PO DAILY 05/23/20 Melatonin 5 mg PO BEDTIME 05/23/20 Miconazole Nitrate 2 % Topical [Monistat-Derm Topical] 1 applic TOP BID 05/23/20 Ondansetron [Ondansetron Odt] 4 mg PO Q8H PRN 05/23/20 Potassium Phosphate Monobasic [K-Phos] 500 mg PO DAILY PRN 05/23/20 Risperidone 9 mg PO BEDTIME 05/23/20 Tetrahydrozoline HCl (Ophth) [Eye Drops] 0.05 % OP Q6H PRN 05/23/20 Valproic Acid Syrup [Depakene Syrup] 10 ml PO TID 05/23/20 Doxycycline Hyclate [Vibramycin] 100 mg PO Q12H #14 cap 05/26/20 Levofloxacin [Levaquin] 750 mg PO DAILY #5 tab 05/26/20
[2020-06-17 17:43] VITALS: TEMP 97.2
--- NOTE | 2020-06-17 17:49 | RAD ---
EXAM: Chest,1 View CLINICAL INDICATION: Altered mental status COMPARISON: 05/26/2020 FINDINGS: A single view of the chest was obtained. The heart size is normal. The pulmonary vascularity is unremarkable. The lungs are clear except for a calcified granuloma in the right lung base. There is no consolidation, infiltrate, pleural effusion, or pneumothorax. IMPRESSION: No evidence of active pulmonary disease. Electronically signed by: Frank Goode MD 06/17/2020 5:48 PM [employer]
--- NOTE | 2020-06-17 18:24 | CT ---
EXAM: CT head without contrast CLINICAL INDICATION: Confusion COMPARISON: There is no previous study for comparison. TECHNIQUE: CT scan was done using contiguous axial 5 mm sections through the brain. This exam was performed according to our departmental dose-optimization program, which includes automated exposure control, adjustment of the mA and/or kV according to patient size and/or use of iterative reconstruction technique. FINDINGS: There is no midline shift, mass effect, or extraaxial fluid collection. There is no evidence of acute intracranial hemorrhage, mass lesion, or cerebral edema. The ventricles and cortical sulci are normal for the patient's age. Bone window images reveal no evidence of a skull fracture. IMPRESSION: No evidence of an acute intracranial process. Electronically signed by: Frank Goode MD 06/17/2020 6:22 PM [employer]
[2020-06-17 19:24] VITALS: O2SAT 96
[2020-06-17 20:29] VITALS: BP 179/88
== END 2020-06-17 20:29 ==
LOC: ER 17:12
DX: F23 Brief psychotic disorder (principal); F31.60 Bipolar disorder, current episode mixed, unspecified; I44.7 Left bundle-branch block, unspecified; E11.9 Type 2 diabetes mellitus without complications; F17.200 Nicotine dependence, unspecified, uncomplicated; R56.9 Unspecified convulsions; Z20.822 Contact with and (suspected) exposure to COVID-19; Z79.899 Other long term (current) drug therapy; Z91.14 Patient's other noncompliance with medication regimen; Z79.82 Long term (current) use of aspirin; Z88.8 Allergy status to other drugs, medicaments and biological substances; Z88.0 Allergy status to penicillin

== ENCOUNTER 2020-06-19 17:43 | Emergency (ER) | payer OTHER ==
--- NOTE | 2020-06-19 17:48 | ED.PDOC ---
History of Present Illness - General Time Seen by Provider: 06/19/20 17:43 Source: patient, Vital Signs reviewed, EMS notes reviewed, prison records Additional Information: Female, with history of respiratory failure, with hypoxia hypercapnia, multiple falls lumbar spine fractures, chronic bipolar chronic back issues cognitive impairment insomnia patient comes from prison patient last seen normal was yesterday that was last time that she has pulled as well, patient usually is alert and awake and even though she is in her wheelchair she can also ambulate on her own today they noticed that she was weak not acting herself, when EMS arrived at the scene she was nonverbal but the mental status slightly improved by the time patient arrived in the ER, no known COVID-19 exposure, but patient definitely looks available less lucid than usual Patient did have an episode of diarrhea in the prison. no dextrose was done with EMS - History of Present Illness Timing/Duration: other - yesterday Improving Factors: nothing Worsening Factors: nothing Associated Symptoms: denies symptoms Allergies/Adverse Reactions: Allergies Ertapenem Allergy (Verified 05/23/20 16:42) Penicillins Allergy (Verified 05/23/20 16:42) Home Medications: Ambulatory Orders ARIPiprazole [Abilify] 5 mg PO DAILY 05/23/20 Acetaminophen [8-Hour Pain Reliever] 650 mg PO Q4H PRN 05/23/20 Aspirin [Aspirin 81 Low Dose] 81 mg PO DAILY 05/23/20 Baclofen 10 mg PO Q8H PRN 05/23/20 Benztropine Mesylate 1 mg PO BID 05/23/20 Chlorhexidine Gluconate (Mouth [Chlorhexidine Gluconate] 15 ml MT QID 05/23/20 Cholecalciferol [Vitamin D3] 1,000 unit PO DAILY 05/23/20 Cyclobenzaprine HCl [Flexeril] 5 mg PO Q8H PRN 05/23/20 Dextromethorphan-Guaifenesin [Mucinex Dm 30-600 mg] 1 tab PO Q12H PRN 05/23/20 Docusate Sodium 100 mg PO DAILY 05/23/20 HYDROcodone 7.5MG/APAP 325MG [[place] 7.5/325] 1 tab PO Q6H PRN 05/23/20 Hydroxyzine Pamoate 50 mg PO Q4H 05/23/20 Ipratropium-Albuterol [Ipratropium [place]/Albut 0.5-2.5 (3) mg/3Ml] 1 halie INH Q4H PRN 05/23/20 Lactobacillus [Acidophilus Lactobacilli] 1 cap PO TID 05/23/20 Loperamide Cap [Imodium Cap] 2 mg PO Q12H PRN 05/23/20 Magnesium Oxide [Mag-Ox Tab] 400 - 800 mg PO DAILY 05/23/20 Melatonin 5 mg PO BEDTIME 05/23/20 Miconazole Nitrate 2 % Topical [Monistat-Derm Topical] 1 applic TOP BID 05/23/20 Ondansetron [Ondansetron Odt] 4 mg PO Q8H PRN 05/23/20 Potassium Phosphate Monobasic [K-Phos] 500 mg PO DAILY PRN 05/23/20 Risperidone 9 mg PO BEDTIME 05/23/20 Tetrahydrozoline HCl (Ophth) [Eye Drops] 0.05 % OP Q6H PRN 05/23/20 Valproic Acid Syrup [Depakene Syrup] 10 ml PO TID 05/23/20 Doxycycline Hyclate [Vibramycin] 100 mg PO Q12H #14 cap 05/26/20 Levofloxacin [Levaquin] 750 mg PO DAILY #5 tab 05/26/20 Cephalexin Monohydrate [Keflex] 500 mg PO BID #10 cap 06/19/20 Review of Systems - Review of Systems Constitutional: States: no symptoms reported EENTM: States: no symptoms reported Respiratory: States: no symptoms reported Cardiology: States: no symptoms reported Gastrointestinal/Abdominal: States: diarrhea Genitourinary: States: no symptoms reported Musculoskeletal: States: no symptoms reported Skin: States: no symptoms reported Endocrine: States: no symptoms reported Hematologic/Lymphatic: States: no symptoms reported Past Medical History (General) - Patient Medical History Hx Seizures: Yes Hx Stroke: No Hx Asthma: No Hx of COPD: No Hx Cardiac Disorders: No Hx Congestive Heart Failure: No Hx Pacemaker: No Hx Hypertension: No Hx Diabetes: Yes Hx Gastroesophageal Reflux: No Hx Renal Disease: No Hx Cancer: No Hx MRSA: No - Vaccination History Hx Influenza Vaccination: - unknown Hx Pneumococcal Vaccination: - unknown - Social History Hx Tobacco Use: Yes Hx Alcohol Use: No Hx Substance Use: No Hx Depression: Yes - bipolar Hx Physical Abuse: No Hx Emotional Abuse: No Family Medical History - Family History Mother Family History: No Known Physical Exam - Physical Exam General Appearance: Lethargic, Well Developed, Other - dry lips Ears, Nose, Throat: hearing grossly normal, normal ENT inspection, normal pharynx Neck: non-tender, full range of motion, supple, normal inspection Respiratory: chest non-tender, lungs clear, normal breath sounds, no respiratory distress, no accessory muscle use Cardiovascular/Chest: normal peripheral pulses, regular rate, rhythm, no edema, no gallop, no JVD, no murmur Gastrointestinal/Abdominal: normal bowel sounds, non tender, soft, no organomegaly, no pulsatile mass, abnormal bowel sounds Back Exam: normal inspection Extremity: normal range of motion, non-tender, normal inspection Neurologic: svp II-XII nml as tested, no motor/sensory deficits, other - drowsy Skin Exam: normal color Progress - Progress Progress: 60 year-old female, that comes from prison facility that presents to the ER because she has been observed to be drowsy hypoactive today, while she has been in the ER, patient has not have any evidence of altered mental status patient has been tolerating by mouth does not feel any distress, I got EKGs that did not show any acute ischemic changes, 2 set of troponin that were negative chest x-ray that was normal for pneumonia a CT that was negative for any intracranial abnormalities, patient is COVID-19 negative. Patient urine is consistent with UTI patient will receive a dose of IV Rocephin. Discharge back to the prison with instructions to return to the ER if there is any high fever chills unable to monitor fluids down nausea vomiting output mental status abdominal pain blood in the urine blood in the stools diarrhea painful urination unwanted weight loss or any other concern 06/19/20 20:16 Departure - Departure Clinical Impression: Urinary tract infection Qualifiers: Urinary tract infection type: urethritis Qualified Code(s): N34.2 - Other urethritis Disposition: Discharge to Home or Self Care Condition: Fair Instructions: Urinary Tract Infection, Adult (DC) Diet: full liquid diet Referrals: BLAIR BENOIT [Primary Care Provider] - 1-2 Weeks Prescriptions: Cephalexin Monohydrate [Keflex] 500 mg PO BID #10 cap Home Medications: Ambulatory Orders ARIPiprazole [Abilify] 5 mg PO DAILY 05/23/20 Acetaminophen [8-Hour Pain Reliever] 650 mg PO Q4H PRN 05/23/20 Aspirin [Aspirin 81 Low Dose] 81 mg PO DAILY 05/23/20 Baclofen 10 mg PO Q8H PRN 05/23/20 Benztropine Mesylate 1 mg PO BID 05/23/20 Chlorhexidine Gluconate (Mouth [Chlorhexidine Gluconate] 15 ml MT QID 05/23/20 Cholecalciferol [Vitamin D3] 1,000 unit PO DAILY 05/23/20 Cyclobenzaprine HCl [Flexeril] 5 mg PO Q8H PRN 05/23/20 Dextromethorphan-Guaifenesin [Mucinex Dm 30-600 mg] 1 tab PO Q12H PRN 05/23/20 Docusate Sodium 100 mg PO DAILY 05/23/20 HYDROcodone 7.5MG/APAP 325MG [[place] 7.5/325] 1 tab PO Q6H PRN 05/23/20 Hydroxyzine Pamoate 50 mg PO Q4H 05/23/20 Ipratropium-Albuterol [Ipratropium [place]/Albut 0.5-2.5 (3) mg/3Ml] 1 halie INH Q4H PRN 05/23/20 Lactobacillus [Acidophilus Lactobacilli] 1 cap PO TID 05/23/20 Loperamide Cap [Imodium Cap] 2 mg PO Q12H PRN 05/23/20 Magnesium Oxide [Mag-Ox Tab] 400 - 800 mg PO DAILY 05/23/20 Melatonin 5 mg PO BEDTIME 05/23/20 Miconazole Nitrate 2 % Topical [Monistat-Derm Topical] 1 applic TOP BID 05/23/20 Ondansetron [Ondansetron Odt] 4 mg PO Q8H PRN 05/23/20 Potassium Phosphate Monobasic [K-Phos] 500 mg PO DAILY PRN 05/23/20 Risperidone 9 mg PO BEDTIME 05/23/20 Tetrahydrozoline HCl (Ophth) [Eye Drops] 0.05 % OP Q6H PRN 05/23/20 Valproic Acid Syrup [Depakene Syrup] 10 ml PO TID 05/23/20 Doxycycline Hyclate [Vibramycin] 100 mg PO Q12H #14 cap 05/26/20 Levofloxacin [Levaquin] 750 mg PO DAILY #5 tab 05/26/20 Cephalexin Monohydrate [Keflex] 500 mg PO BID #10 cap 06/19/20 Additional Instructions: return to the ER if there is any high fever chills unable to monitor fluids down nausea vomiting output mental status abdominal pain blood in the urine blood in the stools diarrhea painful urination unwanted weight loss or any other concern 06/19/20 20:16
--- NOTE | 2020-06-19 19:19 | CT ---
EXAM: CT Head Without Intravenous Contrast CLINICAL HISTORY: The patient is 60 years old and is Female; ams TECHNIQUE: Axial computed tomography images of the head/brain without intravenous contrast. Sagittal and coronal reformatted images were created and reviewed. This CT exam was performed using one or more of the following dose reduction techniques: automated exposure control, adjustment of the mA and/or kV according to patient size, and/or use of iterative reconstruction technique. COMPARISON: CT head June 17, 2020. FINDINGS: Brain: Unremarkable. No hemorrhage. No significant white matter disease. No edema. Ventricles: Unremarkable. No ventriculomegaly. Bones/joints: Unremarkable. No acute skull fracture. Soft tissues: Unremarkable. Sinuses: Unremarkable as visualized. No acute sinusitis. Mastoid air cells: No significant mastoid fluid. IMPRESSION: No acute intracranial findings. No hemorrhage. Electronically signed by: Shayy Romero MD 06/19/2020 7:17 PM [facility]
--- NOTE | 2020-06-19 19:21 | RAD ---
EXAM: XR Chest, 1 View CLINICAL HISTORY: The patient is 60 years old and is Female; ams TECHNIQUE: Single view of the chest. COMPARISON: June 17, 2020. FINDINGS: Lungs: Calcified granuloma right lung. No pulmonary vascular congestion or consolidation. Pleural space: Unremarkable. No pneumothorax. Heart: The cardiac silhouette is enlarged versus artifact of AP technique. Mediastinum: Unremarkable. Bones/joints: Degenerative changes in the right glenohumeral joint. No acute fracture visualized. Old right rib fractures. Upper abdomen: No free air in the visualized upper abdomen. IMPRESSION: No acute cardiopulmonary process identified. Electronically signed by: Shayy Romero MD 06/19/2020 7:19 PM [employer]
[2020-06-19] MEDS ORDERED: cefTRIAXone SODIUM 1 GM in SODIUM CHL 0.9% 50ML MIN-BAG+ 50 ML IVPB ONE (20:05)
[2020-06-19 21:25] VITALS: BP 138/76; TEMP 98; O2SAT 97
== END 2020-06-19 21:25 | disposition home or self-care (01) ==
LOC: ER 17:43
DX: N34.2 Other urethritis (principal); R41.82 Altered mental status, unspecified; F31.9 Bipolar disorder, unspecified; R56.9 Unspecified convulsions; E11.9 Type 2 diabetes mellitus without complications; Z20.822 Contact with and (suspected) exposure to COVID-19; Z87.891 Personal history of nicotine dependence; Z79.899 Other long term (current) drug therapy; Z79.82 Long term (current) use of aspirin; Z88.8 Allergy status to other drugs, medicaments and biological substances; Z88.0 Allergy status to penicillin
CPT/HCPCS: 36415; 70450; 71045; 80053; 81001; 82140; 84443; 84484; 85025; 87086; 87635; 93005; J0696; J7050